=== PATIENT | male | born 1975 | race Caucasian/White ===

== ENCOUNTER 2024-08-02 19:13 | Emergency (ER) | payer OTHER, SELFPAY ==
[2024-08-02 19:15] VITALS: BP 149/72; PULSE 74; RESP 16; TEMP 36.8; O2SAT 98; BMI 28.1
[2024-08-02 20:36] LABS: Add Manual Diff / Slide Review NO; Basophils Absolute Auto 0 /uL (0-100); Basophils Percent Auto 0.3 % (0-2); Eosinophils Absolute Auto 200 /uL (0-450); Eosinophils Percent Auto 3.3 % (2-4); Hematocrit 43.1 % (41-53); Hemoglobin 15.1 g/dL (13.5-17.5); Lymphocytes Absolute Auto 1500 /uL (1100-4500); Lymphocytes Percent Auto 26.9 % (25-40); Mean Corpuscular Hemoglobin 32.1 PG (26-34); Mean Corpuscular Volume 91.8 fL (80-100); Monocytes Absolute Auto 600 /uL (0-900); Monocytes Percent Auto 10.1 % (3-14); Neutrophils Absolute Auto 3400 /uL (1500-7000); Neutrophils Percent Auto 59.4 % (50-75); Platelet Count 241 X10^3/uL (150-400); Red Cell Distribution Width 12.8 % (11.6-14.8); White Blood Cell Count 5.8 X10^3/uL (4.5-11.0)
[2024-08-02 20:43] LABS: Alanine Aminotransferase 28 IU/L (<50); Albumin 4.7 g/dL (3.5-5.0); Albumin Globulin Ratio 1.6 (1.0-2.8); Alkaline Phosphatase 70 U/L (38-126); Aspartate Aminotransferase 39 IU/L (17-59); BUN Creatinine Ratio 16.3 (6-22); Bilirubin Total 0.8 mg/dL (0.2-1.3); Blood Urea Nitrogen 16 mg/dL (9-20); Carbon Dioxide 23 mmol/L (22-32); Chloride 108 mmol/L (98-107); Estimated Glomerular Filt Rate > 60 mL/min (>60); Glucose 91 mg/dL (70-99); HEMOLYSIS 21 (0-50); Lipase 118 U/L (23-300); Potassium 4.1 mmol/L (3.4-5.1); Sodium 140 mmol/L (137-145); Total Protein 7.7 g/dL (6.3-8.2)
--- NOTE | 2024-08-02 22:29 | ED_ITS ---
HPI - General Adult General Chief complaint: Urogenital-Male Stated complaint: Back Pain, Kidney Pain Time Seen by Provider: 08/02/24 19:46 Source: patient Mode of arrival: Ambulatory History of Present Illness HPI narrative: 48-year-old male with history of kidney stones with prior laser surgery removal procedure 2014 and 2016 with [facility], complains of 3 days duration of dry cough, also pain to the left flank onset yesterday, with right-sided flank pain today. No trauma or injury. No nausea or vomiting or diarrhea. No fevers or chills. Increasing pain, concern for possible kidney stones but unusual to have bilateral symptoms at the same time. Related Data Previous Rx's ?Medication ?Instructions ?Recorded methocarbamol 500 mg tablet 500 mg PO TID 7 days #21 t abs 08/03/24 Allergies Allergy/AdvReac Type Severity Reaction Status Date / Time No Known Drug Allergies Allergy Verified 08/02/24 19:16 Patient History Social History Smoking Status: Never smoker Smoking Status: Never smoker Exam Narrative Exam Narrative: GENERAL: Well-developed patient, in mild distress. HEAD: Atraumatic. Normocephalic. EYES: Pupils equal round and reactive. Extraocular motions intact. No scleral icterus. No injection or drainage. ENT: Nose without bleeding, purulent drainage. Throat without erythema, tonsillar hypertrophy or exudate. Airway patent. NECK: Trachea midline. Non tender CARDIOVASCULAR: Regular rate and rhythm without murmurs, gallops, or rubs. RESPIRATORY: Clear to auscultation. Breath sounds equal bilaterally. No wheezes, rales, or rhonchi. GASTROINTESTINAL: Abdomen soft, non-tender, nondistended. EXTREMITIES: No edema or joint tenderness. BACK: Nontender without deformity or crepitance. No flank tenderness. NEURO: AOx3. Motor functions grossly nonfocal. SKIN: No rash or erythema of visible areas Initial Vital Signs Initial Vital Signs: Vital Signs Temperature 98.2 F 08/02/24 19:15 Pulse Rate 74 08/02/24 19:15 Respiratory Rate 16 08/02/24 19:15 Blood Pressure 149/72 H 08/02/24 19:15 Pulse Oximetry 98 08/02/24 19:15 Oxygen Delivery Method Room Air 08/02/24 19:15 Course Orders Ordered: Discontinued Medications Hydromorphone HCl (Hydromorphone 0.5 Mg Inj) 0.5 mg IV NOW ONE Stop: 08/02/24 22:41 Last Admin: 08/02/24 23:16 Dose: 0.5 mg Documented By: KATI Sodium Chloride (Normal Saline 0.9%) 250 mls @ 21 mls/hr IV CONT ISAIAS Last Admin: 08/02/24 23:32 Dose: Not Given Documented By: KATI Sodium Chloride (Normal Saline 0.9%) 1,000 mls @ 1,000 mls/hr IV BOLUS ONE Stop: 08/03/24 00:28 Last Infusion: 08/03/24 00:45 Dose: Infused Documented By: Admin: 08/02/24 23:33 Dose: 1,000 mls/hr Documented By: KTAI Ketorolac Tromethamine (Ketorolac 30 Mg/Ml Vial) 15 mg IV NOW ONE Stop: 08/02/24 22:41 Last Admin: 08/02/24 23:17 Dose: 15 mg Documented By: KATI Methocarbamol (Methocarbamol 500 Mg Tablet) 500 mg PO NOW ONE Stop: 08/03/24 01:23 Last Admin: 08/03/24 01:49 Dose: 500 mg Documented By: KATI Ondansetron HCl (Ondansetron 4 Mg/2 Ml Inj) 4 mg IV NOW ONE Stop: 08/02/24 22:41 Last Admin: 08/02/24 23:16 Dose: 4 mg Documented By: KATI Tramadol HCl (Tramadol 50 Mg Prepack) 1 bottle MISC DIRECTED ONE Stop: 08/03/24 01:26 Last Admin: 08/03/24 01:49 Dose: 1 bottle Documented By: KATI Vital Signs Vital signs: Vital Signs - 8 hr 08/03/24 00:00 08/03/24 00:00 08/03/24 00:30 Pulse Rate 79 74 Respiratory Rate 16 Blood Pressure 110/71 Pulse Oximetry 98 96 Oxygen Delivery Method 08/03/24 00:30 08/03/24 01:00 08/03/24 01:00 Pulse Rate 66 Respiratory Rate 17 Blood Pressure 118/64 106/69 Pulse Oximetry 95 Oxygen Delivery Method Room Air 08/03/24 01:30 08/03/24 01:30 Pulse Rate 65 Respiratory Rate 17 Blood Pressure 131/73 Pulse Oximetry 96 Oxygen Delivery Method Room Air Medical Decision Making Lab Data Lab results reviewed: Yes I reviewed the patient's lab results. Lab results narrative: White blood cell count 5800, hemoglobin 15, platelets adequate. Glucose 91. Renal function normal. Serum CO2 normal, electrolytes unremarkable. Liver functions normal. Lipase normal. Urine negative. 08/02/24 19:55 08/02/24 19:55 Labs: Lab Results 08/02/24 08/02/24 Range/Units 19:55 22:23 WBC 5.8 (4.5-11.0) X10^3/uL RBC 4.70 (4.5-5.9) X10^6/uL Hgb 15.1 (13.5-17.5) g/dL Hct 43.1 (41-53) % MCV 91.8 (80-100) fL MCH 32.1 (26-34) PG MCHC 35.0 (30-36) % RDW 12.8 (11.6-14.8) % Plt Count 241 (150-400) X10^3/uL Neut % (Auto) 59.4 (50-75) % Lymph % (Auto) 26.9 (25-40) % [place] % (Auto) 10.1 (3-14) % Eos % (Auto) 3.3 (2-4) % Baso % (Auto) 0.3 (0-2) % Neut # (Auto) 3400 (3671-5973) /uL Lymph # (Auto) 1500 (7519-6790) /uL [place] # (Auto) 600 (0-900) /uL Eos # (Auto) 200 (0-450) /uL Baso # (Auto) 0 (0-100) /uL Sodium 140 (137-145) mmol/L Potassium 4.1 (3.4-5.1) mmol/L Chloride 108 H (98-107) mmol/L Carbon Dioxide 23 (22-32) mmol/L BUN 16 (9-20) mg/dL Creatinine 0.98 (0.66-1.25) mg/dL Estimated GFR > 60 (>60) mL/min BUN/Creatinine Ratio 16.3 (6-22) Glucose 91 (70-99) mg/dL Calcium 9.0 (8.4-10.2) mg/dL Total Bilirubin 0.8 (0.2-1.3) mg/dL AST 39 (17-59) IU/L ALT 28 (<50) IU/L Alkaline Phosphatase 70 (38-126) U/L Total Protein 7.7 (6.3-8.2) g/dL Albumin 4.7 (3.5-5.0) g/dL Globulin 3.0 (1.7-4.1) g/dL Albumin/Globulin Ratio 1.6 (1.0-2.8) Lipase 118 (23-300) U/L Urine RBC 1-5/hpf (0-5/HPF) Urine WBC 1-5/hpf (0-5/HPF) Ur Squamous Epith Cells 5-10 /hpf H (0-5/HPF) Urine Bacteria Few (2-10) H (None) Urine Mucus 3+ H (Negative) Ur Culture Indicated? Cult not indicated Vol Urine Centrifuged 10ml (spun) Urine Dip Bedside Urine Glucose Negative Bedside Urine Bilirubin - Negative Bedside Urine Ketone + 15 Urine Specific Gilbert 1.020 Bedside Urine Occult Blood - Negative Bedside Urine pH 6.0 Bedside Urine Protein +/- 15 Bedside Urine Urobilinogen 1+ 2mg Bedside Urine Nitrite - Negative Bedside Urine Leukocytes - Negative Esterase Point of care testing: Urine Dip Bedside Urine Glucose Negative Bedside Urine Bilirubin - Negative Bedside Urine Ketone + 15 Urine Specific Gilbert 1.020 Bedside Urine Occult Blood - Negative Bedside Urine pH 6.0 Bedside Urine Protein +/- 15 Bedside Urine Urobilinogen 1+ 2mg Bedside Urine Nitrite - Negative Bedside Urine Leukocytes - Negative Esterase Imaging Data CT scan - abdomen/pelvis: Radiologist's Impression: [place] [id number] CT Scan Report Signed Patient: John Carlson MR#: [id number] : 1975 Acct:[id number] Age/Sex: 48 / M Date of Service: 08/02/24 Loc: ED Accession Number: [id number] Procedure: CT kidney ureter bladder (KUB) Ordering Provider: Roque Garcia MD PROCEDURE: CT KIDNEY URETER BLADDER (KUB) INDICATIONS: bilateral flank pain, hx kidney stones/laser sx TECHNIQUE: Axial sections were acquired from the lung bases to the pubic symphysis. Coronal and sagittal reformats were performed. For radiation dose reduction, the following was used: automated exposure control, adjustment of mA and/or kV according to patient size. COMPARISON: [facility], CT, CT KUB, 05/25/2024, 9:26. FINDINGS: Image quality: Diagnostic. Lower Chest: No significant findings. URINARY: Right Kidney: No stones or hydronephrosis. Previous calculus is no longer visualized. Right Ureter: No hydroureter. Left Kidney: 5 nonobstructing renal calculi the largest measuring 4 mm. Left Ureter: No hydroureter. Bladder: Normal wall thickness. No stones. ABDOMEN: Liver: No contour-deforming solid mass. Gallbladder: No radiopaque gallstones or wall thickening. Biliary ducts: No biliary dilation. Pancreas: No ductal dilation. Spleen: Size is within normal limits. Adrenal Glands: No adrenal nodules. Stomach and Bowel: Normal colonic caliber, without significant wall thickening. Appendix is normal. Minimal diverticula without inflammatory change. Peritoneum: No abnormal intraperitoneal fluid. No free air. Ventral Wall: No hernia. Abdominal Nodes: No enlarged retroperitoneal or mesenteric lymph nodes. Vessels: Aorta and inferior vena cava are normal in size. PELVIS: Pelvic Organs: Unremarkable. Pelvic Nodes: Unremarkable. Miscellaneous: No inguinal hernias are seen. Bones: Unremarkable. IMPRESSION: Nonobstructing left renal calculi. Diverticulosis. Dictated by: Erendira Gilbert M.D. on 08/02/2024 at 23:13 Approved by: Erendira Gilbert M.D. on 08/02/2024 at 23:15 MDM Narrative Medical decision making narrative: 48-year-old male with history of kidney stones with bilateral flank pain, afebrile, concerned he might be having stones again but is unusual to have both sides symptomatic same time. Afebrile, sirs screen negative. He would like pain medication, IV Toradol, IV Dilaudid/Zofran. Labs pending. CT noncontrast abdomen and pelvis ordered. CT abdomen and pelvis shows nonobstructing left renal calculi, diverticulosis. No acute changes. See radiology report. Copy of report provided to patient with discussion with in room at bedside. No acute explanation for left and right back pain. Consider muscular. Trial of muscle relaxant. Patient agreeable. Oral Robaxin dose given in the department, prescription sent to his pharmacy for further doses as needed. Consider use of [id number] Tylenol and or Motrin. Follow up with regular provider advised. Return precautions discussed. Home with . Discharge Plan Departure Patient Disposition: Home Clinical Impression: Back pain, Calculus of left kidney Activity Restrictions/Additional Instructions: History of kidney stones with prior kidney stone removal procedures. Left then right sided back pain. No fever on triage. Screening labs unremarkable. CT abdomen and pelvis imaging showed presence of multiple stones within the left kidney but are not obstructing at this time. No stones mentioned within the right renal system. No stone in either ureter described at this time. You did have some diverticulosis but no inflammatory diverticulitis changes of your colon. No acute changes on CT scan to explain your back symptoms. It is possible you might be having incidental back musculoskeletal pain. Trial of [id number] Tylenol and Motrin as needed. Trial of muscle relaxant Robaxin to use if needed, dose given in the emergency department, prescription sent to your pharmacy to use the next few days if needed. Consider recheck of your symptoms with your regular doctor in the next couple of days. Return to this/nearest emergency department for any change worsening symptoms or any concerns prior. Prescriptions: New methocarbamol 500 mg tablet 500 mg PO TID 7 Days Qty: 21 0RF Stand Alone Forms: Patient Portal/API
[2024-08-02 22:37] LABS: Urine Volume 10mL (spun)
[2024-08-02 22:38] LABS: Bacteria Urine Few (2-10); Culture Indicated Urine Cult Not Indicated; Mucus Urine 3+ (Negative); RBC Urine 1-5/HPF (0-5/HPF); WBC Urine 1-5/HPF (0-5/HPF)
[2024-08-02 22:40] LABS: Squamous Epithelial Cell Urine 5-10 /HPF (0-5/HPF)
--- NOTE | 2024-08-02 22:42 | DI.CT.S_ITS ---
PROCEDURE: CT KIDNEY URETER BLADDER (KUB) INDICATIONS: bilateral flank pain, hx kidney stones/laser sx TECHNIQUE: Axial sections were acquired from the lung bases to the pubic symphysis. Coronal and sagittal reformats were performed. For radiation dose reduction, the following was used: automated exposure control, adjustment of mA and/or kV according to patient size. COMPARISON: [facility], CT, CT KUB, 05/25/2024, 9:26. FINDINGS: Image quality: Diagnostic. Lower Chest: No significant findings. URINARY: Right Kidney: No stones or hydronephrosis. Previous calculus is no longer visualized. Right Ureter: No hydroureter. Left Kidney: 5 nonobstructing renal calculi the largest measuring 4 mm. Left Ureter: No hydroureter. Bladder: Normal wall thickness. No stones. ABDOMEN: Liver: No contour-deforming solid mass. Gallbladder: No radiopaque gallstones or wall thickening. Biliary ducts: No biliary dilation. Pancreas: No ductal dilation. Spleen: Size is within normal limits. Adrenal Glands: No adrenal nodules. Stomach and Bowel: Normal colonic caliber, without significant wall thickening. Appendix is normal. Minimal diverticula without inflammatory change. Peritoneum: No abnormal intraperitoneal fluid. No free air. Ventral Wall: No hernia. Abdominal Nodes: No enlarged retroperitoneal or mesenteric lymph nodes. Vessels: Aorta and inferior vena cava are normal in size. PELVIS: Pelvic Organs: Unremarkable. Pelvic Nodes: Unremarkable. Miscellaneous: No inguinal hernias are seen. Bones: Unremarkable. IMPRESSION: Nonobstructing left renal calculi. Diverticulosis. Dictated by: Erendira Gilbert M.D. on 08/02/2024 at 23:13 Approved by: Erendira Gilbert M.D. on 08/02/2024 at 23:15
[2024-08-02] MEDS: ONDANSETRON 4 MG/2 ML INJ IV (23:16)
[2024-08-02] MEDS: HYDROMORPHONE 0.5 MG INJ IV (23:16)
[2024-08-02] MEDS: KETOROLAC 30 MG/ML VIAL 15 MG IV (23:17)
[2024-08-02 23:23] VITALS: BP 131/84
[2024-08-02 23:24] VITALS: PULSE 75; O2SAT 98
[2024-08-02 23:30] VITALS: BP 121/77; PULSE 68; RESP 16; O2SAT 95
[2024-08-02] MEDS: SODIUM CHLORIDE 0.9% 1,000 ML 1000 ML IV (23:33)
[2024-08-03] VITALS: BP 110/71; PULSE 79; RESP 16; O2SAT 98
[2024-08-03 00:30] VITALS: BP 118/64; PULSE 74; O2SAT 96
[2024-08-03 01:00] VITALS: BP 106/69; PULSE 66; RESP 17; O2SAT 95
[2024-08-03 01:30] VITALS: BP 131/73; PULSE 65; RESP 17; O2SAT 96
[2024-08-03] MEDS: TRAMADOL 50 MG PREPACK 1 BOTTLE MISC (01:49)
[2024-08-03] MEDS: methocarbamoL 500 MG TABLET PO (01:49)
== END 2024-08-03 01:57 | disposition home or self-care (01) ==
PROVIDERS: Emergency Provider Emergency Medicine
DX: N20.0 Calculus of kidney (principal); R05.9 Cough, unspecified; M54.9 Dorsalgia, unspecified
CPT/HCPCS: 36415; 74176; 80053; 81003; 81015; 83690; 85025; 96361; 96374; 96375; 99284; J1171; J1885; J2405